=== PATIENT | female | born 1930 | race Hispanic/Latino ===

== ENCOUNTER 2016-08-07 06:55 | Day surgery (SDC) | payer MEDICARE, OTHER ==
[~2016-08-07 06:55] MED LIST: Flurbiprofen 0.03% Opht SOLN OD SCH; Lactated Ringer's 500 ML IV ONE; Phenylephrine 2.5% Opht Soln OD SCH; Tropicamide 1% Opht SOLUTION OD SCH
[2016-08-07] MEDS ORDERED: Lactated Ringer's 500 ML IV ONE ×3 (07:56→08:43)
[2016-08-07] MEDS: Tetracaine 0.5% Ophth (OR ONLY) ONE ×2 (08:38→09:05)
[2016-08-07] MEDS: Lidocaine 2% Inj (20ml) ONE ×2 (08:39→09:14)
[2016-08-07] MEDS: Povidone Iodine Ophthalmic 5% Soln ONE ×2 (08:41→09:23)
[2016-08-07] MEDS: Hyaluronidase Human, Recombi 150 U/ML VIAL ONE ×2 (08:41→09:14)
[2016-08-07] MEDS: Chondroitin/Hyaluronate Opth Syringe KIT (0.55 ml-0.5 ml) IO ONE ×2 (08:41→09:23)
[2016-08-07] MEDS: Carbachol 0.01% IO ONE ×2 (08:42→09:38)
[2016-08-07] MEDS: Tobramycin/Dexamethasone OPHT OINT ONE ×2 (08:43→09:40)
[2016-08-07] MEDS ORDERED: Propofol 10 mg/ml Inj (20 ML) ONE (09:18)
[2016-08-07 10:12] VITALS: RESP 18
[2016-08-07 12:10] VITALS: BP 148/89; PULSE 91; TEMP 97.7; O2SAT 98
--- NOTE | 2016-08-08 11:51 | OP ---
PROCEDURE DATE: 08/07/2016 PREOPERATIVE DIAGNOSIS: Nuclear cataract, right eye. POSTOPERATIVE DIAGNOSIS: Nuclear cataract, right eye. OPERATIVE PROCEDURE: Cataract extraction with lens implant, right eye. ANESTHESIA: Retrobulbar block. COMPLICATIONS: None. PROCEDURE: The patient was brought to the operating room and properly identified. Anesthesia staff a dministered intravenous sedation and retrobulbar block was given to the surgical eye. The patient wa s then prepped and draped in the usual sterile fashion. Attention was turned to the surgical eye. A lid speculum was placed into interpalpebral fissure. Si tting temporally two paracentesis incisions were made. The anterior chamber was filled with viscoela stic and a triplanar clear corneal incision was made. Using a cystitome anterior capsular leaflet wa s created. Utrata forceps were used to create a continuous curvilinear capsulorrhexis. Balanced marry t solution on a cannula was used to hydrodissect and hydrodelineate the lens. The lens was then phac oemulsified with no complications. Automated irrigation and aspiration was used to remove the cortex . Viscoelastic was used to deepen the anterior chamber. The lens was placed in the capsular bag. A utomated irrigation and aspiration was used to remove the viscoelastic. The anterior chamber was neptali led with Miochol. The wounds were hydrated with balanced salt solution. There was noted to be no le ak at the end of the case and the lens was well positioned. The lid speculum was removed. The eye w as given antibiotics and steroids and covered with a patch and shield. The patient was returned to [facility] recovery room in stable condition. Dk Moser MD cc: [id number] TT: 08/08/2016 11:50:32 [place]
== END 2016-08-07 12:50 | disposition home or self-care (01) ==
LOC: C.SDS 06:55
PROVIDERS: ATTEND Ophthalmology
DX: H26.9 Unspecified cataract (principal)
CPT/HCPCS: 66984; 82948; J2704; J3010; J3470; J7120; V2632

== ENCOUNTER 2016-09-11 07:42 | Day surgery (SDC) | payer MEDICARE, OTHER ==
[~2016-09-11 07:42] MED LIST changes: +Carbachol 0.01% IO ONE; +Chondroitin/Hyaluronate Opth Syringe KIT (0.55 ml-0.5 ml) IO ONE; -Flurbiprofen 0.03% Opht SOLN OD SCH; +Hyaluronidase Human, Recombi 150 U/ML VIAL ONE; -Phenylephrine 2.5% Opht Soln OD SCH; +Phenylephrine 2.5% Opht Soln OS SCH; +Povidone Iodine Ophthalmic 5% Soln ONE; +Tetracaine 0.5% Ophth (OR ONLY) ONE; +Tobramycin/Dexamethasone OPHT OINT ONE; -Tropicamide 1% Opht SOLUTION OD SCH; +Tropicamide 1% Opht SOLUTION OS SCH
[2016-09-11] MEDS ORDERED: Midazolam 2 MG/2 ML VIAL ONE (10:12)
[2016-09-11] MEDS ORDERED: Propofol 10 mg/ml Inj (20 ML) ONE (10:12)
[2016-09-11] MEDS ORDERED: Lactated Ringer's 500 ML IV ONE (10:12)
[2016-09-11 11:47] VITALS: BP 150/74; PULSE 84; RESP 20; TEMP 98; O2SAT 99
--- NOTE | 2016-09-23 11:43 | OP ---
PROCEDURE DATE: 09/11/2016 PREOPERATIVE DIAGNOSIS: Mature cataract, left eye. POSTOPERATIVE DIAGNOSIS: Mature cataract, left eye. OPERATIVE PROCEDURE: Cataract extraction with lens implant, left eye. ATTENDING: Dk Moser MD ANESTHESIA: Retrobulbar block. COMPLICATIONS: None. ESTIMATED BLOOD LOSS 0 mL. DESCRIPTION OF PROCEDURE: The patient was brought to the operating room and properly identified. Anesthesia staff administered intravenous sedation and retrobulbar block was given to the surgical eye. The patient was then prepped and draped in the usual sterile fashion. Attention was turned to the surgical eye. A lid speculum was placed into interpalpebral fissure. Sitting temporally, two paracentesis incisions were made. The anterior chamber was filled with viscoelastic and a triplanar clear corneal incision was made. Using a cystitome, anterior capsular leaflet was created. Utrata forceps were used to create a continuous curvilinear capsulorrhexis. Balanced salt solution on a cannula was used to hydrodissect and hydrodelineate the lens. The lens was then phacoemulsified with no complications. Automated irrigation and aspiration was used to remove the cortex. Viscoelastic was used to deepen the anterior chamber. The lens was placed in the capsular bag. Automated irrigation and aspiration was used to remove the viscoelastic. The anterior chamber was filled with Miochol. The wounds were hydrated with balanced salt solution. There was noted to be no leak at the end of the case and the lens was well positioned. The lid speculum was removed. The eye was given antibiotics and steroids and covered with a patch and shield. The patient was returned to the recovery room in stable condition. Dk Moser MD
--- NOTE | 2016-09-23 13:42 | PCM.OP ---
Operative Report - Operative Report Date of Surgery/Procedure: 09/11/16 Anesthesia/Sedation: Retrobulbar block Pre-Operative Diagnosis: Mature cataract left eye Post-Operative Diagnosis: Mature cataract left eye Procedure/Operation Description: Please use Dr. Moser cataract dictation #1 Complications: None.
== END 2016-09-11 11:45 | disposition home or self-care (01) ==
LOC: C.SDS 07:42
PROVIDERS: ATTEND Ophthalmology
DX: H25.12 Age-related nuclear cataract, left eye (principal)
CPT/HCPCS: 66984; J2704; J3470; J7120; V2632